=== PATIENT | male | born 1980 | race Caucasian/White ===

== ENCOUNTER 2019-03-02 16:05 | Emergency (ER) | payer MEDICAID ==
[~2019-03-02] VITALS: Ht 177.8 cm; Wt 87.9 kg
[2019-03-02 17:00] LABS: BASOPHILS # (AUTO) 0.02 x10^3/uL (0-0.1); BASOPHILS % (AUTO) 0 % (0-1); EOSINOPHILS # (AUTO) 0.37 x10^3/uL (0-0.4); EOSINOPHILS % (AUTO) 5 % (1-7); LYMPHOCYTES # (AUTO) 2.76 x10^3/uL (1-3.4); LYMPHOCYTES % (AUTO) 36 % (22-44); MD NO; MEAN CORPUSCULAR HEMOGLOBIN 32.6 pg (27.5-34.5); MEAN CORPUSCULAR VOLUME 98.5 fL (81-97); MEAN PLATELET VOLUME 10.5 fL (7.4-10.4); MONOCYTES # (AUTO) 0.69 x10^3/uL (0.2-0.8); MONOCYTES % (AUTO) 9 % (2-9); NEUTROPHILS # (AUTO) 3.75 x10^3/uL (1.8-6.8); NEUTROPHILS % (AUTO) 49 % (42-75); PLATELET COUNT 153 x10^3/uL (130-400); RED BLOOD COUNT 5.41 x10^6/uL (4.38-5.82); RED CELL DISTRIBUTION WIDTH 12.9 % (9.4-14.8)
[2019-03-02 17:13] LABS: ALBUMIN 4.1 g/dL (3.4-5.0); ANION GAP 8 mmol/L (5-15); CALCIUM 8.4 mg/dL (8.5-10.1); CHLORIDE 110 mmol/L (98-107)
[2019-03-02 17:15] LABS: CREATININE 1.09 mg/dL (0.7-1.3)
--- NOTE | 2019-03-02 18:39 | NUR ---
pt to room from lobby
--- NOTE | 2019-03-02 18:52 | NUR ---
PATIENT BROUGHT BACK TO [facility] 09, ASSUMED CARE OF PATIENT AT THIS TIME.
[2019-03-02] MEDS ORDERED: VALPROATE SODIUM 100 MG/ML, 5ML IV STA (18:53)
[2019-03-02] MEDS ORDERED: LEVETIRACETAM 500 MG TABLET PO ONE (19:00)
[2019-03-02] MEDS ORDERED: TOPIRAMATE 100 MG TABLET PO ONE (19:00)
--- NOTE | 2019-03-02 19:19 | NUR ---
PATIENT TRANSFERRED TO ROOM 1.
[2019-03-02] MEDS ORDERED: VALPROATE SODIUM 1,000 MG in DEXTROSE 5% 100 ML IV ONE (19:30)
--- NOTE | 2019-03-02 19:52 | NUR ---
PT STATES HE HAD A SEIZURE AND BIT HIS TONGUE. RAN OUT OF HIS SEIZURE MEDS YESTERDAY
[2019-03-02] MEDS ORDERED: LEVETIRACETAM 500 MG TABLET ONE (19:56)
--- NOTE | 2019-03-02 20:26 | NUR ---
PO SEIZURE MEDS GIVEN WITH IV MEDS INFUSING AT THIS TIME
--- NOTE | 2019-03-02 20:48 | NUR ---
REPORT RECEIVED AND CARE ASSUMED. PT RESTING WITH NO NEEDS EXPRESSED. NO SEIZURES NOTED AT THIS TIME. PRECAUTIONS IN PLACE. VSS. CALL LIGHT IN REACH.
--- NOTE | 2019-03-02 20:56 | NUR ---
REPORT TO JUDI CAMPBELL
[2019-03-02 21:36] VITALS: BP 143/98
== END 2019-03-02 21:39 | disposition home or self-care (01) ==
LOC: ED 20:38
DX: R56.9 Unspecified convulsions (principal); Z76.0 Encounter for issue of repeat prescription
CPT/HCPCS: 36415; 80048; 80164; 80177; 82040; 85025; 96365